=== PATIENT | female | born 1990 | race African-American/Black ===

== ENCOUNTER 2018-01-12 22:58 | Emergency (ER) | payer OTHER ==
[~2018-01-12] VITALS: Ht 167.6 cm; Wt 92.1 kg
[2018-01-12 23:22] VITALS: Ht 167.6 cm; Wt 92.1 kg
[2018-01-12 23:45] VITALS: BP 109/71
== END 2018-01-12 23:45 | disposition left against medical advice (07) ==
LOC: ED 22:58
DX: O60.03 Preterm labor without delivery, third trimester (principal); G43.909 Migraine, unspecified, not intractable, without status migrainosus; D56.9 Thalassemia, unspecified; Z3A.30 30 weeks gestation of pregnancy